=== PATIENT | male | born 1975 | race Caucasian/White ===

== ENCOUNTER 2023-10-15 10:07 | Day surgery (SDC) | payer BC ==
[2023-10-15] MEDS ORDERED: Midazolam 1 MG/ML 2 ML SDV ONE (10:42)
[2023-10-15] MEDS ORDERED: Propofol 200 MG/20 ML SDV ONE (10:42)
[2023-10-15] MEDS ORDERED: fentaNYL 50 MCG/ML SDV ONE (10:42)
[2023-10-15] MEDS ORDERED: Lactated Ringers 1,000 ML IV SCH (11:00)
== END 2023-10-15 13:30 | disposition home or self-care (01) ==
LOC: JP.SDS 10:07
PROVIDERS: ATTEND Student in an Organized Health Care Education/Training Program
DX: Z12.11 Encounter for screening for malignant neoplasm of colon (principal)
CPT/HCPCS: J2250; J2704; J3010; J7120